=== PATIENT | male | born 1975 ===

== ENCOUNTER 2018-01-30 08:15 | Emergency (ER) | payer OTHER ==
[2018-01-30 08:22] VITALS: PULSE 77; O2SAT 98
[2018-01-30] MEDS ORDERED: Lidocaine 5% Patch TD STA (08:55)
[2018-01-30] MEDS ORDERED: Lidocaine 5% Patch TD ONE (09:24)
--- NOTE | 2018-01-30 09:26 | C.PDOC ---
History Of Present Illness 42 y/o male presents to ED with c/o right lowerback paoin radiating to right lateral thigh since yesterday. Patient had similar once before, tried old muscle relaxant with no improvement. Patient denies dysuria, hematuria, bowel/bladder incontinence, saddle anesthesia, abdominal pain or any other complaints at this time. no trauma or injury. Time Seen by Provider: 01/30/18 08:23 Chief Complaint (Nursing): Back Pain History Per: Patient History/Exam Limitations: no limitations Onset/Duration Of Symptoms: Days Current Symptoms Are (Timing): Still Present Quality Of Discomfort: "Pain" Past Medical History Reviewed: Historical Data, Nursing Documentation, Vital Signs Vital Signs: Last Vital Signs Temp 98.8 F 01/30/18 08:19 Pulse 77 01/30/18 08:19 Resp 19 01/30/18 08:19 BP 134/91 H 01/30/18 08:19 Pulse Ox 98 01/30/18 08:19 - Medical History PMH: Back Problems, Chronic Pain Surgical History: No Surg Hx Family History: States: No Known Family Hx - Social History Hx Tobacco Use: No Hx Alcohol Use: No Hx Substance Use: No - Immunization History Hx Tetanus Toxoid Vaccination: No Hx Influenza Vaccination: No Hx Pneumococcal Vaccination: No Review Of Systems Constitutional: Negative for: Fever, Chills Gastrointestinal: Negative for: Nausea, Vomiting Genitourinary: Negative for: Dysuria, Hematuria Musculoskeletal: Positive for: Back Pain, Leg Pain. Negative for: Neck Pain Physical Exam - Physical Exam Appears: Non-toxic, No Acute Distress Skin: Warm, Dry, No Rash Head: Atraumatic, Normacephalic Eye(s): bilateral: Normal Inspection Oral Mucosa: Moist Neck: Normal ROM, Supple Cardiovascular: Rhythm Regular Respiratory: Normal Breath Sounds, No Rales, No Rhonchi, No Wheezing Gastrointestinal/Abdominal: Soft, No Tenderness, No Guarding, No Rebound Back: No CVA Tenderness, No Muscle Spasm, Other (right Lumbar and sciatic notch tenderness) Extremity: Normal ROM, No Pedal Edema, Capillary Refill (<2 seconds) Neurological/Psych: Oriented x3, Normal Speech, Normal Cognition, Normal Motor, Normal Sensation ED Course And Treatment O2 Sat by Pulse Oximetry: 98 (RA) Pulse Ox Interpretation: Normal Medical Decision Making Medical Decision Making: Plan: Lidoderm patch and toradol administered. On re evaluation patient feeling better, discharged with follow up to PMD in 1-2 days. 1011 pt with decreased pain, will d/c with nsaids, muscle relaxant. f/u med clinic Disposition Counseled Patient/Family Regarding: Diagnosis, Need For Followup, Rx Given - Disposition Referrals: [facility] [Outside] Disposition: HOME/ ROUTINE Disposition Time: 10:12 Condition: IMPROVED Additional Instructions: Avoid heavy lifting. Remove patch in 12 hours. Take muscle relaxant every 8 hours if at home, no driving or operating machinery with it- makes you sleepy. Take ibuprofen 600 mg by mouth every 6-8 hours for pain. Take with food. Cold or warm compresses to area several times a day. Follow up in medical clinic next week. Prescriptions: Cyclobenzaprine [Cyclobenzaprine HCl] 10 mg PO Q8 #9 tab Instructions: Sciatica (DC) Forms: [employer] (German), General Discharge Instructions - Clinical Impression Clinical Impression: Sciatica - PA / SEGREGATOR / Resident Statement MD/DO has reviewed & agrees with the documentation as recorded. - Scribe Statement The provider has reviewed the documentation as recorded by the Scribalfred Zhou All medical record entries made by the Peewee were at my direction and personally dictated by me. I have reviewed the chart and agree that the record accurately reflects my personal performance of the history, physical exam, medical decision making, and the department course for this patient. I have also personally directed, reviewed, and agree with the discharge instructions and disposition.
[2018-01-30 11:02] VITALS: BP 130/85; RESP 20; TEMP 98.5
== END 2018-01-30 11:03 | disposition home or self-care (01) ==
LOC: C.ER 08:15
DX: M54.31 Sciatica, right side (principal)
CPT/HCPCS: 96372; 99284; J1885

== ENCOUNTER 2018-08-05 09:33 | Day surgery (SDC) | payer OTHER ==
[2018-08-05 09:57] VITALS: BMI 29.1
[2018-08-05] MEDS ORDERED: Lactated Ringer's 500 ML IV ONE ×2 (11:11)
[2018-08-05] MEDS ORDERED: Propofol 10 mg/ml Inj (20 ML) ONE (11:14)
--- NOTE | 2018-08-05 11:24 | CP.SDSHP ---
Same Day Surgery H & P - History Proposed Procedure: EGD/Bx Pre-Op Diagnosis: Dyspepsia - Previous Medical/Surgical History Comments: none Previous Surgical History: none - Allergies Allergies: Allergies No Known Allergies Allergy (Verified 01/30/18 08:22) - Current Medications Current Medications: reviewed - Physical Exam General Appearance: wdwn nad Vital Signs: Vital Signs 08/05/18 09:57 Pulse Rate 75 Mental Status: Alert & Oriented x3 Heart: WNL Lungs: WNL GI: WNL - {Optional Preform as Required} Abdomen: WNL - Impression Impression: dyspepsia Pt. Evaluated Today:Candidate for Anesthesia & Procedure: Yes - Date & Time Date: 08/05/18 Time: 11:23 Short Stay Discharge - Short Stay Discharge Admitting Diagnosis/Reason for Visit: DYSPEPSIA Disposition: HOME/ ROUTINE
[2018-08-05 11:46] VITALS: RESP 18; TEMP 97.8
[2018-08-05 13:03] VITALS: BP 117/82; PULSE 72; O2SAT 99
== END 2018-08-05 12:30 | disposition home or self-care (01) ==
LOC: C.ENDO 09:33
PROVIDERS: ATTEND Internal Medicine Gastroenterology
DX: K29.50 Unspecified chronic gastritis without bleeding (principal); K30 Functional dyspepsia; B96.81 Helicobacter pylori [H. pylori] as the cause of diseases classified elsewhere
CPT/HCPCS: 43239; 88305; 88342; J2001; J2704; J7120